=== PATIENT | female | born 1955 | race African-American/Black ===

== ENCOUNTER 2018-07-03 09:44 | Emergency (ER) | payer MEDICAID ==
[~2018-07-03] VITALS: Ht 167.6 cm; Wt 129.0 kg
[2018-07-03] MEDS ORDERED: OXYCODONE HCL/ACETAMINOPHEN 5/325MG TABLET PO ONE (10:45)
[2018-07-03] MEDS ORDERED: IBUPROFEN 600MG TABLET PO ONE (10:45)
[2018-07-03 13:01] VITALS: BP 108/71
== END 2018-07-03 14:20 | disposition home or self-care (01) ==
LOC: ER 09:44
DX: S52.021A Displaced fracture of olecranon process without intraarticular extension of right ulna, initial encounter for closed fracture (principal); Z98.890 Other specified postprocedural states; W22.8XXA Striking against or struck by other objects, initial encounter; Y93.89 Activity, other specified; Y92.89 Other specified places as the place of occurrence of the external cause; Y99.8 Other external cause status
CPT/HCPCS: 73080; 99284; A4565